=== PATIENT | female | born 1935 | race Hispanic/Latino ===

== ENCOUNTER 2016-09-11 11:34 | Observation (INO) | payer MEDICARE ==
--- NOTE | 2016-09-11 11:53 | ED PDOC ---
Arrival/HPI - General Time Seen by Provider: 09/11/16 11:48 Historian: Patient - History of Present Illness Narrative History of Present Illness (Text): 09/11/16 11:40 Kenna Zurita is a 81 year old male who presents to the emergency department complaining of sudden onset palpitations and shortness of breath prior to arrival. Patient denies any chest pain, coughing, or any other complaint at this time. PMD: Dr. Alvarez Time/Duration: Prior to Arrival Symptom Onset: Sudden Symptom Course: Unchanged Activities at Onset: Light Context: Home Past Medical History - Provider Review Nursing Documentation Reviewed: Yes - Cardiac Hx Pacemaker: No - Neurological Hx Paralysis: No - Hematological/Oncological Hx Blood Transfusions: Yes (08/06) - Musculoskeletal/Rheumatological Hx Musculoskeletal Disorders: Yes - Psychiatric Hx Emotional Abuse: No Hx Physical Abuse: No Hx Substance Use: No - Surgical History Hx Arteriovenous Shunt: No Hx Cardiac Catheterization: No Hx Coronary Artery Bypass Graft: No Hx Coronary Stent: No Hx Open Heart Surgery: No Hx Valve Replacement: No Hx Vascular Surgery: No - Anesthesia Hx Anesthesia Reactions: No Hx Malignant Hyperthermia: No - Suicidal Assessment Feels Threatened In Home Enviroment: No Family/Social History - Physician Review Nursing Documentation Reviewed: Yes Family/Social History: No Known Family HX Hx Alcohol Use: Yes (SOCIAL WINE) Hx Substance Use: No Allergies/Home Meds Allergies/Adverse Reactions: Allergies No Known Allergies Allergy (Verified 09/11/16 11:58) Home Medications: Home Meds Medication Instructions Recorded Confirmed Hydrochlorothiazide 25 mg PO DAILY 09/22/11 01/13/15 Omeprazole 40 mg PO DAILY 09/22/11 01/13/15 Cholecalciferol [Vitamin D] 1,000 iu PO DAILY 09/01/12 01/13/15 Multivitamin and [id number] 1 tab PO DAILY 09/01/12 01/13/15 [Centrum Silver] Cholest-Off 2 cap PO DAILY 01/10/15 01/13/15 Physical Exam - Physical Exam Narrative Physical Exam (Text): - Review of Systems Constitutional: Normal. absent: Fatigue, Weight Change, Fevers Eyes: Normal ENT: Normal Respiratory: Difficulty Breathing. absent: Cough, Sputum Cardiovascular: Palpitations. absent: Chest pain, Syncope Gastrointestinal: Normal absent: Abdominal pain, Diarrhea, Nausea, Vomiting Genitourinary: Normal. absent: Dysuria, Frequency, Hematuria Musculoskeletal: Normal. absent: Arthralgias, Back Pain, Neck Pain Skin: Normal Neurological: Normal absent: Focal Weakness Endocrine: Normal Hemo/Lymphatic: Normal Psychiatric: Normal - Physical exam Patient appears age appropriate, speaking full sentences without difficulty. - Systems Exam Head: Present: Atraumatic, Normocephalic Pupils: Present: PERRL Extraocular Muscles: Present: EOMI Conjunctiva: Present: Normal Mouth: Present: Moist Mucous Membranes Neck: Present: Normal Range of Motion. No: MIDLINE TENDERNESS, Paraspinal Tenderness Respiratory/Chest: Present: Clear to Auscultation, Good Air Exchange. No: Respiratory Distress, Accessory Muscle Use, Tachypneic Cardiovascular: Present: Tachycardia. No: Murmurs Abdomen: Present: Normal Bowel Sounds, No: Tenderness, Peritoneal Signs, Rebound, Guarding, Distention Back: Present: Normal Inspection. No: Midline Tenderness, Paraspinal Tenderness Upper Extremity: Present: Normal Inspection. No: Cyanosis, Edema Lower Extremity: Present: Normal Inspection. No: Edema Neurological: Present: GCS=15, Speech Normal, cranial nerves II through XII fully intact with no cerebellar abnormality, neuro-sensory fully intact. No focal neurological deficits. Skin: Present: Diaphoretic. Warm, Normal Color. No: Rashes Lymphatic: Present: OX3, NI, NC Psychiatric: Present: Alert, Oriented x 3, Normal Insight, Normal Concentration Vital Signs Temp Pulse Pulse Resp BP BP Pulse Ox 09/11/16 15:00 73 16 136/72 100 09/11/16 13:23 92 H 09/11/16 13:04 121 H 18 98 09/11/16 11:56 97.5 F L 243 H 18 126/78 95 09/11/16 11:48 226 H 126/78 Medical Decision Making ED Course and Treatment: Impression: 81 year old female complaining of sudden onset of palpitations and shortness of breath prior to arrival. Differential Diagnosis include but are not limited to: PE, dehydration, arrhythmia Plan: -- Chest X-ray -- Angio Chest CT -- Labs -- Adenosine and Aspirin -- Reassess and disposition Progress Notes: EKG shows Junctional Rhythm at [address]-segment elevations, normal intervals. with no prior for comparison. Interpreted by me. 09/11/16 12:23 Patient received Adenosine, repeat EKG shows Normal Sinus at 97 bpm. Patient states that she feels better. Patient seen by Dr. Sharma from cardiology who agrees with plan. Recommends admission for further workup. 09/11/16 13:10 Chest X-ray: Creator : Debbie Esteban MD IMPRESSION: No focal consolidation, significant pleural effusion, or definite pneumothorax identified. 09/11/16 14:32 HR high 90's palp, pt in no distress, denies complaints. CTA pending CTA chest PE protocol Power Plant Superintendent : Debbie Esteban MD Report Date : 09/11/2016 15:19:21 Impression: No large central or segmental pulmonary embolus identified. Mild subsegmental atelectasis, bilateral lung bases. 09/11/16 15:[address] Maher in detail, accepted pt to tele/obs for further w/u pt in no distress, denies complaints at this time, HR decreased, aware of and agrees with plan - Lab Interpretations Lab Results: 09/11/16 12:07 09/11/16 12:07 Lab Results 09/11/16 12:07: TSH 3rd Generation 2.41 09/11/16 12:07: Sodium 139, Potassium 3.9, Chloride 103, Carbon Dioxide 23, Anion Gap 17, BUN 14, Creatinine 0.6, Est GFR ( Amer) > 60, Est GFR (Non- Af Amer) > 60, Random Glucose 121 H, Calcium 9.4, Total Bilirubin 0.5, AST 35, ALT 37, Alkaline Phosphatase 96, Lactate Dehydrogenase 527, Total Creatine Kinase 60, Troponin I 0.04, NT-Pro-B Natriuret Pep 392, Total Protein 8.3, Albumin 4.5, Globulin 3.8, Albumin/Globulin Ratio 1.2 09/11/16 12:07: PT 11.1, INR 1.03, APTT 25.7 09/11/16 12:07: WBC 12.2 H D, RBC 4.25, Hgb 13.4, Hct 41.0, MCV 96.5, MCH 31.5, MCHC 32.7, RDW 14.2, Plt Count 268, MPV 10.3, Gran % 70.6 H, Lymph % (Auto) 21.9 L, [place] % (Auto) 6.6 H, Eos % (Auto) 0.7 L, Baso % (Auto) 0.2, Gran # 8.57 H, Lymph # 2.7, [place] # 0.8 H, Eos # 0.1, Baso # 0.03 - RAD Interpretation Radiology Orders: 09/11/16 11:59 ANGIO CHEST PE PROTOCOL [CT] Stat CHEST PORTABLE [RAD] Stat - Medication Orders Current Medication Orders: Discontinued Medications Adenosine (Adenosine 6 Mg/2 Ml Inj) 6 mg IVP STAT STA Stop: 09/11/16 12:00 Last Admin: 09/11/16 12:00 Dose: 6 mg Aspirin (Aspirin Chewable) 324 mg PO STAT STA Stop: 09/11/16 12:00 Last Admin: 09/11/16 12:00 Dose: 324 mg Iodixanol (Visipaque 320 Mg/Ml 100 Ml) Confirm Administered Dose 100 ml IV .[employer]- MED ONE Stop: 09/11/16 14:43 - Scribe Statement The provider has reviewed the documentation as recorded by the Bradley Tapia Provider Scribe Attestation: All medical record entries made by the Scribe were at my direction and personally dictated by me. I have reviewed the chart and agree that the record accurately reflects my personal performance of the history, physical exam, medical decision making, and the department course for this patient. I have also personally directed, reviewed, and agree with the discharge instructions and disposition. Disposition/Present on Arrival - Present on Arrival Any Indicators Present on Arrival: No History of DVT/PE: No History of Uncontrolled Diabetes: No Urinary Catheter: No - Disposition Have Diagnosis and Disposition been Completed?: Yes Diagnosis: Tachycardia Disposition: HOSPITALIZED Disposition Time: 15:57 Patient Plan: Observation Condition: STABLE Referrals: PCP,NO [Non-Staff] - Follow up with primary
[2016-09-11 12:28] LABS: ADD MANUAL DIFF? NO
[2016-09-11 12:32] LABS: BASO # 0.03 K/mm3 (0.0-2.0); BASO % 0.2 % (0.0-3.0); EOS # 0.1 (0.0-0.7); EOS % 0.7 % (1.5-5.0); GRAN # 8.57 (1.4-6.5); GRAN % 70.6 % (50.0-68.0); LYMPH # 2.7 (1.2-3.4); LYMPH % 21.9 % (22.0-35.0); MEAN CELL VOLUME 96.5 fL (80.0-105.0); MEAN CORPUSCULAR HEMOGLOBIN 31.5 pg (25.0-35.0); MEAN CORPUSCULAR HGB CONC 32.7 g/dl (31.0-37.0); MEAN PLATELET VOLUME 10.3 fl (7.0-11.0); MONO # 0.8 (0.1-0.6); MONO % 6.6 % (1.0-6.0); PLATELET COUNT 268 10^3/uL (120.0-450.0); RED CELL DISTRIBUTION WIDTH 14.2 % (11.5-14.5); WHITE BLOOD COUNT 12.2 10^3/ul (4.5-11.0)
[2016-09-11 12:40] LABS: INR 1.03 (0.93-1.08); PARTIAL THROMBOPLASTIN TIME 25.7 Seconds (23.7-30.8)
[2016-09-11 12:47] LABS: ALB/GLOB RATIO 1.2 (1.1-1.8); ALKALINE PHOSPHATASE 96 U/L (38-133); ALT/SGPT 37 U/L (7-56); AST/SGOT 35 U/L (15-39); BILIRUBIN,TOTAL 0.5 mg/dL (0.2-1.3); BLOOD UREA NITROGEN 14 mg/dL (7-21); CALCIUM 9.4 mg/dL (8.4-10.5); CARBON DIOXIDE 23 mmol/L (21-33); CHLORIDE 103 mmol/L (98-107); GFR AFRICAN-AMERICAN > 60; GLUCOSE,RANDOM 121 mg/dL (70-110); POTASSIUM 3.9 mmol/L (3.6-5.0); SODIUM 139 mmol/L (132-148); TOTAL PROTEIN 8.3 g/dL (5.8-8.3)
[2016-09-11 12:59] LABS: TROPONIN I 0.04 ng/mL
--- NOTE | 2016-09-11 13:09 | RAD ---
HISTORY: cough COMPARISON: Chest x-ray performed 09/01/12 TECHNIQUE: Chest, one view. FINDINGS: Examination limited by habitus. LUNGS: No focal consolidation. Please note that chest x-ray has limited sensitivity for the detection of pulmonary masses. PLEURA: No significant pleural effusion identified. No definite pneumothorax . CARDIOVASCULAR: Heart size appears within normal limits. OSSEOUS STRUCTURES: No acute osseous abnormality identified. VISUALIZED UPPER ABDOMEN: Unremarkable. OTHER FINDINGS: None. IMPRESSION: No focal consolidation, significant pleural effusion, or definite pneumothorax identified.
[2016-09-11] MEDS ORDERED: Iodixanol 320 MG/ML 100 ML BOTTLE IV ONE (14:42)
--- NOTE | 2016-09-11 15:20 | CT ---
CTA chest PE protocol Indication: Rule out PE, cough Technique: Contiguous axial images were obtained through the chest with intravenous contrast enhancement. Sagittal and coronal reconstructions were generated and reviewed. This CT exam was performed using 1 or more of the falling dose reduction techniques: Automated exposure control, adjustment of the MAA and/or kV according to patient size, and/or use of iterative reconstruction technique. IV Contrast: 100 cc Visipaque Radiation dose (DLP): 675.55 MGy-cm. Comparison: Chest x-ray performed 09/11/16 Findings: Visualized portions of the inferior thyroid gland appear unremarkable. The mediastinal and hilar vascular structures appear within normal limits. The heart appears within normal limits of size. Coronary artery calcifications. Atherosclerotic calcifications of the aorta. No large central or segmental pulmonary embolus evident. Mild bibasilar subsegmental atelectasis. No focal consolidation. No pleural effusion. No pneumothorax. No suspicious pulmonary nodules measuring greater than 5 mm. Small hiatal hernia. Limited visualized portions of the upper abdomen appear grossly unremarkable. Osseous demineralization. Degenerative changes. Mild kyphosis. Impression: No large central or segmental pulmonary embolus identified. Mild subsegmental atelectasis, bilateral lung bases.
--- NOTE | 2016-09-11 15:43 | CARD ---
APPROVED REPORT EKG Measurement Heart [id number] <Conclusion> Normal sinus rhythm Normal ECG
--- NOTE | 2016-09-11 15:44 | CARD ---
APPROVED REPORT EKG Measurement Heart [id number] <Conclusion> Accelerated Junctional rhythm with retrograde conduction Abnormal ECG
[2016-09-11 16:25] LABS: CHOLESTEROL 193 mg/dL (130-200)
[2016-09-11 18:27] VITALS: BMI 29.2
[2016-09-11] MEDS ORDERED: Pneumococcal 23-Valent Vaccine IM ONE (18:27)
--- NOTE | 2016-09-11 18:59 | CON ---
DATE: 09/11/2016 REASON FOR CONSULTATION: Palpitation and junctional tachycardia. HISTORY OF PRESENT ILLNESS: The patient is a 81-year-old white female who has no known prior cardiac history. Has, otherwise, a history of hypertension and is on hydrochlorothiazide therapy at home. The patient is also on omeprazole at home. The patient was shopping with her daughter in [facility] she started to feel palpitations and dizziness and was brought to the Emergency Room. The patient was found to be in junctional tachycardia that was terminated with intravenous adenosine. The patien delaney is comfortable at this time when I saw after the termination of the junctional tachycardia. The pa keshaira denies any retrosternal chest pain and heart disease, palpitations has resolved. SOCIAL HISTORY: The patient is a nonsmoker, nondrinker. HOME MEDICATIONS: Include omeprazole 40 mg once a day, hydrochlorothiazide 25 mg once a day, multivi tamin, vitamin D. REVIEW OF SYSTEMS: No nausea or vomiting, no fever or chills. No productive cough. The patient has stopped drinking caffeinated beverages and she only drinks 1 cup of decaffeinated coffee in the [facility] ing. PHYSICAL EXAMINATION: GENERAL: The patient is an elderly female who does not appear to be in any distress. VITAL SIGNS: Blood pressure 126/78, heart rate at this time 92, temperature 97.5, respirations 18. There was mentioning of a heart rate in the vital signs of 226 and 243; this is wrong and this is yesica ble the heart rate because the monitor of this patient was doubling heart rate by interpreting the T- wave as an R-wave, so all these numbers should be cut into half to get the accurate reading. HEENT: Normocephalic. NECK: No JVD. CHEST: Clear. HEART: S1, S2 regular. ABDOMEN: Soft. EXTREMITIES: No edema, no calf tenderness. LABORATORY DATA: CBC: WBC 12.2, hemoglobin 13.4, hematocrit 41, platelet count 268,000. SMA-7: So dium 139, potassium 3.9, chloride 103, CO2 of 23, glucose 121, BUN 14, creatinine 0.6, troponin 0.04. TSH level is within normal limits at 2.41. PT, PTT and INR are within normal limits. Chest x-ray was reviewed and is unremarkable. ASSESSMENT: 1. Junctional tachycardia. 2. Hypertension. 3. Rule out pulmonary embolus. RECOMMENDATIONS: Continue current telemetry monitoring. I discussed the case with Dr. House, obt n digoxin level. I will follow the CT angio of the chest that was performed in the Emergency Room and obtain an echocardiogram. Kameron Sharma MD cc: [id number] TT: 09/11/2016 18:58:28 Confirmation # [id number] Dictation # [id number] dn
--- NOTE | 2016-09-11 23:39 | HP ---
CHIEF COMPLAINT: Heart palpitations with shortness of breath. HISTORY OF PRESENT ILLNESS: This is a 81-year-old female with history of hypertension and hyperlipidemia who presented to the Emergency Room with complaints of sudden onset of severe heart palpitations associated with shortness of breath and diaphoresis. The patient states that she was feeling well this morning. She had breakfast and took a dose of Mucinex for her postnasal drip. She started feeling severe palpitations 15 minutes later. She denied any chest pain, neck pain, jaw pain, nausea or vomiting. She denied any headache or blurry vision. The patient felt better after 20 minutes, was able to go out with her daughter but developed severe exertional dyspnea and diaphoresis and decided to come to the Emergency Room for evaluation. In the Emergency Room, her heart rate was in the 200s. Treated with adenosine, successfully going back to normal sinus rhythm after a half hour. PAST MEDICAL HISTORY: Hypertension, medication was changed from valsartan to Cardizem 180 mg 2 months ago; history of hyperlipidemia, taking a small dose of lovastatin; history of hyperglycemia with prediabetes, a hemoglobin A1c 6.0; history of gastric ulcers. Raynaud's syndrome. PAST SURGICAL HISTORY: Significant for appendectomy, abdominal hernia repair. ALLERGIES: The patient has no known allergies. CURRENT MEDICATIONS: Cardizem-CD 180 mg daily, lovastatin 20 mg daily, multivitamins and vitamin D. FAMILY HISTORY: Significant for pancreatic cancer in a sister, a history of hypertension, no history of acute sudden . SOCIAL HISTORY: The patient denies any smoking, alcohol or drug use. The patient is retired. The patient is very active, independent of activity of daily living. REVIEW OF SYSTEMS: The patient denies any fever, loss of appetite, weight loss. Denies any sore throat. Complaining of postnasal drip and chronic nasal congestion. Denies any cough, wheezing. The patient denies any chest pain. Complaining today of palpitations. The patient denies any abdominal pain, nausea, vomiting, melena or hematemesis. Denies any flank pain, hematuria or dysuria. The patient denies any neurological symptoms of headache, blurry vision, weakness. She has chronic low back pain with spinal stenosis. Denies any other joint pains. She complains of chronic hand discomfort related to Raynaud syndrome. PHYSICAL EXAMINATION: GENERAL: The patient is alert, awake, oriented. VITAL SIGNS: Stable, temperature was 97.5 in the Emergency Room. Her pulse rate was 243 beats per minute; it went down to 121 and 92 and regular. Her respiratory rate was 18. Her blood pressure is 136/72. HEAD: Normocephalic, atraumatic. EYES: Pupils reactive to light. Oral mucosa is moist. NECK: Supple. LUNGS: Clear to auscultation. HEART: With regular rhythm and rate of 80 per minute. ABDOMEN: Soft, nontender, nondistended. EXTREMITIES: With no edema or cyanosis. There are chronic changes of bilateral fingers with skin thickening and deformities of the distal fingers due to Raynaud syndrome. Her distal pulses are positive. NEUROLOGIC: Normal. DIAGNOSTIC TESTS: CBC showed WBC 12.2, hemoglobin 13.0, hematocrit 41, and platelet count 268. PT, PTT was normal. Her comprehensive panel showed normal electrolytes, normal renal and liver functions. Her TSH was normal at 2.41. Troponin was 0.04 and BNP was normal at 392. Chest x-ray showed no active disease. The first electrocardiogram showed accelerated junctional rhythm with a heart rate of [address]-T changes. Repeated EKG after 1 hour showed normal sinus rhythm with no ST-T changes. CT angiogram ruled out a pulmonary embolism. ASSESSMENT: A 81-year-old female with: 1. A history of hypertension and hyperlipidemia with a new episode of cardiac arrhythmia, probably supraventricular tachycardia with abnormal EKG. Must rule out cardiovascular pathology including coronary artery disease. 2. Hypertension. 3. Hyperlipidemia. 4. Raynaud syndrome. PLAN OF TREATMENT: The patient will be admitted to telemetry. Sign Builder will be called on consult. Will monitor her heart rate and rhythm carefully. Will continue Cardizem-CD 180 mg daily. Kayla Orozco MD cc: [id number] TT: 09/11/2016 23:38:37 dn MTDD
[2016-09-12 08:25] LABS: HEMATOCRIT 34.5 % (36.0-48.0); MEAN CELL VOLUME 95.8 fL (80.0-105.0); MEAN CORPUSCULAR HEMOGLOBIN 30.8 pg (25.0-35.0); MEAN CORPUSCULAR HGB CONC 32.2 g/dl (31.0-37.0); MEAN PLATELET VOLUME 9.8 fl (7.0-11.0); RED CELL DISTRIBUTION WIDTH 14.1 % (11.5-14.5); WHITE BLOOD COUNT 7.5 10^3/ul (4.5-11.0)
[2016-09-12 08:44] LABS: ALB/GLOB RATIO 1.2 (1.1-1.8); ALKALINE PHOSPHATASE 74 U/L (38-133); ALT/SGPT 36 U/L (7-56); AST/SGOT 32 U/L (15-39); BILIRUBIN,TOTAL 0.5 mg/dL (0.2-1.3); BLOOD UREA NITROGEN 16 mg/dL (7-21); CALCIUM 8.8 mg/dL (8.4-10.5); CARBON DIOXIDE 25 mmol/L (21-33); CHLORIDE 104 mmol/L (98-107); GFR AFRICAN-AMERICAN > 60; GLUCOSE,RANDOM 93 mg/dL (70-110); POTASSIUM 3.9 mmol/L (3.6-5.0); SODIUM 137 mmol/L (132-148); TOTAL PROTEIN 7.1 g/dL (5.8-8.3)
--- NOTE | 2016-09-12 11:47 | PN ---
DATE: 09/12/2016 SUBJECTIVE: The patient was seen in telemetry. She was admitted for a sudden onset of junctional tachycardia yesterday; returned to a sinus rhythm after a dose of adenosine. The patient is feeling well. She denies any heart palpitation, chest pain, shortness of breath, or diaphoresis. OBJECTIVE: This morning VITAL SIGNS: Temperature 98.1. Her pulse is 70 and regular. Blood pressure 141/74, respiratory rate 20. Her oxygen saturation is 98% on room air. GENERAL: She is comfortable in bed, alert, awake, oriented. HEAD: Normocephalic, atraumatic. ORAL MUCOSA: Moist. NECK: Supple. No neck masses. No JVD. LUNGS: Clear to auscultation. HEART: With regular rhythm and rate. ABDOMEN: Soft, nontender, and nondistended. EXTREMITIES: With no edema. DIAGNOSTIC TESTS: Repeated troponin at 0.08. Third troponin is still pending. CBC showed a normal WBC 7.5, hemoglobin 11.1, hematocrit 34.5. Her chemistry was normal. ASSESSMENT 1. History of junctional tachycardia, with return to normal sinus rhythm after adenosine; currently hemodynamically stable in normal sinus rhythm. 2. Elevated troponin, probably mild ischemia secondary to arrhythmia. 3. Hypertension. 4. Hyperlipidemia. 5. Raynaud syndrome. PLAN OF TREATMENT: The patient will be monitored. We will repeat a troponin level 1 more time. Scheduled for an echocardiogram probably tomorrow. The patient will need a stress test for evaluation.We will continue Cardizem . Kayla Orozco MD cc: [phone] TT: 09/12/2016 11:47:01 Confirmation # [id number] Dictation # [id number] gilberto COATES
--- NOTE | 2016-09-12 14:17 | PN ---
DATE: 09/12/2016 SUBJECTIVE: The patient denies any dizziness or palpitation. No reported junctional tachycardia. PHYSICAL EXAMINATION: VITAL SIGNS: Blood pressure 193/93, heart rate 87, temperature 98.7, respirations 20. HEENT: Normocephalic. NECK: No JVD. CHEST: Clear. HEART: S1, S2 regular. EXTREMITIES: No edema. LABORATORIES: Hemoglobin and hematocrit 11.1 and 34.5. White count and platelet count are within no rmal limits. Today's SMA-7 is entirely within normal limits. Triglycerides yesterday were 406. TSH level was within normal limit. Official report of CT angio, no large or central segmental pulmonary embolus, mild subsegmental atelectasis, bilateral lung bases. ASSESSMENT: 1. Status post junctional tachycardia. 2. Uncontrolled hypertension. 3. Hypertriglyceridemia. RECOMMENDATIONS: Continue Lipitor at 10 mg daily. Start Lopressor at 25 mg twice a day and Cardizem 30 mg t.i.d. Awaiting echocardiograph study. Kameron Sharma MD cc: [id number] TT: 09/12/2016 14:17:12 Confirmation # [id number] Dictation # [id number] dn
[2016-09-13 06:11] VITALS: RESP 20; O2SAT 97
[2016-09-13 08:31] LABS: ALB/GLOB RATIO 1.3 (1.1-1.8); ALKALINE PHOSPHATASE 74 U/L (38-133); ALT/SGPT 37 U/L (7-56); AST/SGOT 33 U/L (15-39); BILIRUBIN,TOTAL 0.5 mg/dL (0.2-1.3); BLOOD UREA NITROGEN 17 mg/dL (7-21); CALCIUM 9.1 mg/dL (8.4-10.5); CARBON DIOXIDE 23 mmol/L (21-33); CHLORIDE 104 mmol/L (95-110); GFR AFRICAN-AMERICAN > 60; GLUCOSE,RANDOM 103 mg/dL (70-110); HEMATOCRIT 37.7 % (36.0-48.0); MEAN CELL VOLUME 96.4 fL (80.0-105.0); MEAN CORPUSCULAR HEMOGLOBIN 31.2 pg (25.0-35.0); MEAN CORPUSCULAR HGB CONC 32.4 g/dl (31.0-37.0); POTASSIUM 4.1 mmol/L (3.6-5.0); RED CELL DISTRIBUTION WIDTH 14.1 % (11.5-14.5); SODIUM 139 mmol/L (132-148); TOTAL PROTEIN 7.8 g/dL (5.8-8.3)
--- NOTE | 2016-09-13 10:16 | PN ---
DATE: 09/13/2016 The patient was admitted for cardiac arrhythmia with heart rate of 230, converted to sinus rhythm with adenosine. The patient is feeling well. Denies any palpitations, chest pain or shortness of breath. The patient is ambulating with no additional symptoms. PHYSICAL EXAMINATION: VITAL SIGNS: Stable. Temperature 98.1, pulse 65, regular, blood pressure 134/ 69, respiratory rate 20, her oxygen saturation is 97% on room air. GENERAL: She is comfortable in bed, alert, awake, oriented. HEENT: Head is normocephalic, atraumatic. Oral mucosa is moist. NECK: Supple. LUNGS: Clear to auscultation. HEART: With regular rhythm, rate of 65 per minute. ABDOMEN: Soft, nontender, nondistended. EXTREMITIES: With no edema. DIAGNOSTIC TESTS: CBC is normal. Chemistry is within normal limits. Her troponin was 0.03, down from 0.08. ASSESSMENT: 1. Status post junctional tachycardia. 2. Hypertension. 3. Hyperlipidemia. The patient was started back on Cardizem 30 mg 3 times a day. The patient is scheduled for echocardiogram today. We will discuss with icu rn and discharge her home this afternoon after the test. We will continue Cardizem 180 mg p.o. daily, aspirin daily and lovastatin daily. Kayla Orozco MD cc: [id number] TT: 09/13/2016 10:16:09 Confirmation # [id number] Dictation # [id number] MTDD
[2016-09-13 12:16] VITALS: BP 130/74; TEMP 98.7
--- NOTE | 2016-09-13 15:05 | CARD ---
APPROVED REPORT EXAM: Two-dimensional and M-mode echocardiogram with Doppler and color Doppler. INDICATION TACHYCARDIA 2D DIMENSIONS Left Atrium (2D)3.8 (1.6-4.0cm)IVSd1.3 (0.7-1.1cm) LVDd3.2 (3.9-5.9cm)PWd1.2 (0.7-1.1cm) LVDs2.2 (2.5-4.0cm)FS (%) 31.5 % LVEF (%)60.7 (>50%) M-Mode DIMENSIONS Aortic Root2.90 (2.2-3.7cm)Aortic Cusp Exc.1.60 (1.5-2.0cm) Aortic Valve AoV Peak Ibsyhinq526.0cm/Marlen Peak GR.7mmHg Mitral Valve MV E Bljlofim46.9cm/sMV E Peak Gr.13mmHgMV A Covuayuh500.0cm/s MV E Mean Gr.4mmHgMV [id number]/A ratio0.6 MVA (PHT)1.42cm2 TDI E/Lateral E'0.0E/Medial E'0.0 Tricuspid Valve TR Peak [id number]/sRAP [id number] Peak Gr.36mmHg [id number] LEFT VENTRICLE The left ventricle is normal size. There is mild concentric left ventricular hypertrophy. The left ventricular function is normal. The left ventricular ejection fraction is within the normal range. There is normal LV segmental wall motion. Transmitral Doppler flow pattern is Grade I-abnormal relaxation pattern. RIGHT VENTRICLE The right ventricle is normal size. There is normal right ventricular wall thickness. The right ventricular systolic function is normal. ATRIA The left atrium size is normal. The right atrium size is normal. AORTIC VALVE The aortic valve is normal in structure. No aortic regurgitation is present. MITRAL VALVE The mitral valve is moderately thickened. Mitral annular calcification is moderate to severe. Mitral regurgitation is trace. TRICUSPID VALVE There is mild pulmonary hypertension. GREAT VESSELS The aortic root displays moderate sclerocalcific changes of the aortic root. PERICARDIAL EFFUSION There is a trace loculated anterior pericardial effusion. <Conclusion> The left ventricle is normal size. There is mild concentric left ventricular hypertrophy. The left ventricular function is normal. The left ventricular ejection fraction is within the normal range. There is normal LV segmental wall motion. Transmitral Doppler flow pattern is Grade I-abnormal relaxation pattern. There is mild pulmonary hypertension.
--- NOTE | 2016-09-13 16:23 | PN ---
DATE: 09/13/2016 REASON FOR CONSULTATION AND FOLLOWUP: SVT, palpitation. BRIEF CLINICAL HISTORY: This is a 81-year-old female with no significant past medical history admitt ed with SVT, got adenosine, now stable. Denies any chest pain, shortness of breath, any palpitation. PHYSICAL EXAMINATION: VITAL SIGNS: Temperature afebrile, heart rate 83, blood pressure 130/74. HEENT: PERRLA. Extraocular muscles intact. NECK: Supple. No carotid bruits. No thyromegaly. CHEST: Clear to auscultation. HEART: S1, S2 regular. ABDOMEN: Soft. EXTREMITIES: Clubbing and cyanosis negative. BLOOD WORKUP: As follows: WBC 10, hemoglobin 12.2, hematocrit 37.7, platelet count 274. Chemistry shows sodium 139, potassium 4.0, chloride 104, carbon dioxide 23, anion gap of 16, BUN 17, creatinine 0.7. Troponin 0.03. IMPRESSION: Supraventricular tachycardia, responded to adenosine; hyperlipidemia, mild obesity. No evidence of acute myocardial infarction. Hypertension. RECOMMENDATION: Will get echo to assess LV function. Will schedule a stress test as an outpatient. If the patient remains in the hospital, we will get a stress test tomorrow; otherwise, we will do ou tpatient. Will follow with you. Thank you, Dr. Alvarez, for providing the opportunity in taking care of the patient. Interim, jamey ellis metoprolol 25 mg 3 times a day, Cardizem 30 mg t.i.d. Will follow with you. Will keep n.p.o. af ter 12 midnight for a stress test in the morning. Isabela Barclay MD cc: [id number] TT: 09/13/2016 16:22:19 Confirmation # [id number] Dictation # [id number] raji
--- NOTE | 2016-09-13 16:25 | PN ---
DATE: 09/13/2016 ADDENDUM TYPE OF DICTATION: Addendum to initial progress note dictated this morning. REASON FOR ADDENDUM: The patient was scheduled for a stress test tomorrow, but patient current ly discharged. Okay to discharge. We will schedule a stress test as outpatient, IV Lexiscan. We wi ll schedule a stress test in 1-2 weeks as outpatient. The patient had echocardiography done today th at shows normal LV function, ejection fraction within normal limits, no wall motion abnormality, mild mitral annular calcification, trace mitral regurgitation, no aortic regurgitation noted, mild pulmon susan hypertension, right ventricular systolic pressure 46, calculated ejection fraction 60%. We will schedule a stress test as outpatient. Thank you, Dr. Orozco, for providing us the opportunity in taking care of the patient. Isabela Barclay MD cc:Kayla Orozco MD 305 TT: 09/13/2016 16:25:31 Confirmation # [id number] Dictation # [id number]
[2016-09-13 16:35] VITALS: PULSE 85
[2016-09-14] MEDS ORDERED: diltiaZEM 180 mg/24 Hours CD Cap PO SCH (10:00)
== END 2016-09-13 16:21 | disposition home or self-care (01) ==
LOC: ED 11:34 → ERH 15:57 → 2RSO 18:14 → 2RNO 09-13 13:33
PROVIDERS: ADMIT Family Medicine; ATTEND Family Medicine
DX: I47.1 Supraventricular tachycardia (principal); I10 Essential (primary) hypertension; E78.5 Hyperlipidemia, unspecified; I73.00 Raynaud's syndrome without gangrene; E78.1 Pure hyperglyceridemia; I34.0 Nonrheumatic mitral (valve) insufficiency; I27.2 Other secondary pulmonary hypertension; E66.9 Obesity, unspecified; Z68.31 Body mass index [BMI] 31.0-31.9, adult
CPT/HCPCS: 36415; 71010; 71275; 80053; 80061; 82550; 83615; 83880; 84443; 84484; 85025; 85027; 85610; 85730; 93005; 93306; 96374; 99285; G0378; J0153; Q9967

== ENCOUNTER 2017-01-07 07:26 | Day surgery (SDC) | payer MEDICARE ==
[2016-12-31 11:24] VITALS: BMI 28.3
[2017-01-07 08:00] VITALS: TEMP 98.2
[2017-01-07] MEDS ORDERED: Propofol 10 mg/ml Inj (20 ML) ONE (08:42)
[2017-01-07] MEDS ORDERED: Sodium Chloride 0.9% 1,000 ML IV SCH (09:45)
[2017-01-07 10:19] VITALS: RESP 16
[2017-01-07 10:47] VITALS: BP 149/71; PULSE 57; O2SAT 95
== END 2017-01-07 11:20 | disposition home or self-care (01) ==
LOC: ENDO 07:26
PROVIDERS: ATTEND Internal Medicine Gastroenterology
DX: K92.1 Melena (principal); K26.9 Duodenal ulcer, unspecified as acute or chronic, without hemorrhage or perforation; K31.819 Angiodysplasia of stomach and duodenum without bleeding; K29.50 Unspecified chronic gastritis without bleeding; K29.80 Duodenitis without bleeding; K31.89 Other diseases of stomach and duodenum; K63.3 Ulcer of intestine; K57.30 Diverticulosis of large intestine without perforation or abscess without bleeding; K52.9 Noninfective gastroenteritis and colitis, unspecified; K64.8 Other hemorrhoids
CPT/HCPCS: 43239; 43250; 45380; 88305; 88342; J2001; J2704; J3010; J7040 ×2

== ENCOUNTER 2018-06-14 10:19 | Outpatient (CLI) | payer MEDICARE | END 2018-06-14 10:20 | disposition home or self-care (01) | LOC: RAD 10:19 ==